=== PATIENT | male | born 1945 | race Caucasian/White ===

== ENCOUNTER 2017-04-07 17:15 | Emergency (ER) | payer OTHER, MEDICARE ==
[2017-04-07 17:36] VITALS: PULSE 64; RESP 16; TEMP 96.8
[2017-04-07] MEDS ORDERED: MECLIZINE HYDROCHLORIDE 12.5 MG TAB PO ONE (17:53)
[2017-04-07] MEDS ORDERED: MECLIZINE HYDROCHLORIDE 12.5 MG TAB ONE (17:56)
[2017-04-07 19:24] VITALS: BP 140/77; O2SAT 100
== END 2017-04-07 19:20 | disposition home or self-care (01) | DRG 149 ==
LOC: ED 17:15
DX: H81.12 Benign paroxysmal vertigo, left ear (principal)
CPT/HCPCS: 99282; 99283

== ENCOUNTER 2018-09-08 13:25 | Emergency (ER) | payer OTHER, MEDICARE ==
[2018-09-08] MEDS: SODIUM CHLORIDE 0.9% FLUSH 10 ML SOL IV PRN ×2 (13:38→14:02)
[2018-09-08 13:39] VITALS: RESP 16; TEMP 97.6; O2SAT 98
[2018-09-08 13:53] LABS: APPEARANCE,URINE Clear; BILIRUBIN,URINE NEGATIVE (NEGATIVE); COLOR,URINE Yellow; GLUCOSE, URINE (UA) NEGATIVE (NEGATIVE); KETONES,URINE NEGATIVE (NEGATIVE); LEUKOCYTE ESTERASE ,URINE NEGATIVE (NEGATIVE); NITRATE,URINE NEGATIVE (NEGATIVE); OCCULT BLOOD,URINE TRACE INTACT (NEG-TRACE); UROBILINOGEN,URINE 0.2 (0.2-1.0 EU)
[2018-09-08] MEDS ORDERED: KETOROLAC TROMETHAMINE 30 MG/ML SOL IV ONE (13:57)
[2018-09-08] MEDS ORDERED: KETOROLAC TROMETHAMINE 30 MG/ML SOL ONE (13:59)
[2018-09-08 14:15] LABS: BASOPHILS % (AUTO) 1 % (0-3); EOSINOPHILS % (AUTO) 3 % (0-9); HEMATOCRIT 45 % (39-53); LYMPHOCYTES % (AUTO) 13.6 % (10-50); MEAN CORPUSCULAR HGB CONC 33.2 gm/dl (32.0-36.0); MEAN CORPUSCULAR VOLUME 87 fL (80-100); MONOCYTES % (AUTO) 5.3 % (0-12); NEUTROPHILS % (AUTO) 77.3 % (37-80)
[2018-09-08 14:23] LABS: BACTERIA TRACE (< 1+); CRYSTALS NEGATIVE (0-3 AVE/HPF); EPITHELIAL CELLS 0-1 (SQUAMOUS); RBC,URINE 0-1 (0-3AV/HPF); WBC,URINE 0-1 (0-5AV/HPF)
[2018-09-08 14:29] LABS: ALBUMIN 4.2 gm/dl (3.4-5.0); BILIRUBIN,TOTAL 0.5 mg/dl (0.2-1.0); CALCIUM 8.6 mg/dl (8.5-10.1); CREATININE 1.4 mg/dl (0.80-1.30); POTASSIUM 4.7 mMol/L (3.5-5.1); TOTAL PROTEIN 7.3 gm/dl (6.4-8.2)
[2018-09-08 15:07] VITALS: BP 156/87; PULSE 76
== END 2018-09-08 14:54 | disposition home or self-care (01) | DRG 392 ==
LOC: ED 13:25
DX: R10.9 Unspecified abdominal pain (principal)
CPT/HCPCS: 36415; 80053; 81001; 85025; 96374; 99282; 99284; J1885